=== PATIENT | female | born 1995 | race Two or more races ===

== ENCOUNTER 2024-05-06 20:54 | Emergency (ER) | payer MEDICAID, SELFPAY ==
[2024-05-06 20:55] VITALS: BMI 33.2
[2024-05-06 21:09] VITALS: BP 129/90; PULSE 86; RESP 19; TEMP 36.6; O2SAT 97
--- NOTE | 2024-05-06 21:12 | PD.EDRME ---
Rapid Medical Screening Exam RME Arrival date/time: 05/06/24 20:54 28-year-old female with past medical history of cholecystectomy presents emergency department complaining of chest pressure with shortness of breath that started 2 hours ago after a meal. Chief Complaint: Chest Pain Vital signs: Vital Signs Temperature 97.9 F 05/06/24 21:09 Pulse Rate 86 05/06/24 21:09 Respiratory Rate 19 05/06/24 21:09 Blood Pressure 129/90 H 05/06/24 21:09 Pulse Oximetry (%) 97 05/06/24 21:09 Oxygen Delivery Method Room Air 05/06/24 21:09 Vital signs reviewed by provider: Yes
--- NOTE | 2024-05-06 21:13 | XR_ITS ---
Examination: PA lateral chest 2 views Technique: Upright PA lateral chest 2 views Exam date and time: May 06, 2024 2112 hrs. Indications: Chest pain today Findings: Normal heart size Lungs are clear. The osseous structures are intact Impression: No active disease
[2024-05-06 21:39] LABS: Basophils % (Auto) 0 % (0-2.5); Eosinophils # (Auto) 0.1 Thou/mm3 (0.0-0.5); Eosinophils % (Auto) 1 % (0-10); Hematocrit 36.4 % (36.0-46.0); Immature Granulocytes % (Auto) 0 % (0-0); Immature Granulocytes Auto 0.04 Thou/mm3 (0.00-0.00); Lymphocytes # (Auto) 1.2 Thou/mm3 (1.0-4.8); Lymphocytes % (Auto) 13 % (10-50); Mean Corpuscular HGB Conc 35.7 g/dl (31.0-37.0); Mean Corpuscular Hemoglobin 32.1 pg (25.0-35.0); Mean Corpuscular Volume 90 fL (80-100); Monocytes # (Auto) 0.4 Thou/mm3 (0.0-0.8); Monocytes % (Auto) 5 % (0-12); Neutrophils # (Auto) 7.5 Thou/mm3 (1.8-7.7); Neutrophils % (Auto) 81 % (37-80); Nucleated Red Blood Cell % 0 /100 WBC (0); Platelet Count 342 Thou/mm3 (140-440); RDW Standard Deviation 41.2 fL (36.4-46.3); Red Blood Count 4.05 Miln/mm3 (4.00-5.20); White Blood Count 9.3 Thou/mm3 (3.6-11.0)
[2024-05-06 21:54] LABS: Partial Thromboplastin Time 24.3 Seconds (22.0-36.0)
[2024-05-06 22:09] LABS: B-Type Natriuretic Peptide < 20 pg/mL (0-100)
[2024-05-06 22:16] LABS: Alanine Aminotransferase 121 U/L (10-49); Albumin, Serum 5.1 gm/dL (3.5-5.0); Albumin/Globulin Ratio 1.8 (1.2-2.2); Alkaline Phosphatase 69 U/L (46-116); Anion Gap 8 (7-16); Aspartate Amino Transferase 71 U/L (0-34); BUN/Creatinine Ratio 9 Ratio (12-20); Bilirubin,Total 0.6 mg/dL (0.3-1.2); Blood Urea Nitrogen 8 mg/dL (9-23); Calcium 10.6 mg/dL (8.3-10.6); Calcium (Corrected) 10.6 mg/dL (8.5-10.1); Carbon Dioxide 27.4 mMol/L (20.0-31.0); Chloride 103 mMol/L (98-107); Creatinine (Component) 0.9 mg/dL (0.6-1.3); Estimated Creatinine Clearance 83.9 mL/min (>60); Globulin 2.8 gm/dL (2.3-3.5); Glucose 131 mg/dL (74-106); Magnesium 1.9 mg/dL (1.6-2.6); Osmolality,Calculated 275 (275-295); Potassium 3.4 mMol/L (3.4-5.1); Sodium 138 mMol/L (136-145); Total Protein 7.9 gm/dL (5.7-8.2); Troponin I < 0.002 ng/mL (0.0-0.045); eGFR > 60 See Note
[2024-05-06 22:35] LABS: HCG,Qualitative Serum Negative
[2024-05-06 23:21] LABS: Collection Type, Urine Clean Catch
[2024-05-06 23:28] LABS: Bilirubin,Urine Negative (Negative); Blood,Urine Negative (Negative); Clarity,Urine Clear (Clear/Hazy); Color,Urine Lt-Yellow (Lt Yel-Yel); Culture Indicated,Urine Not Indicated; Glucose, Urine Negative (Negative); Ketones,Urine Negative (Negative); Leukocyte Esterase,Urine Positive (Negative); Nitrite,Urine Negative (Negative); PH,Urine 6.5 (5.0-7.0); Protein,Urine Negative (Neg - Trace); RBC,Urine 1 /hpf (0-3); Specific Gravity,Urine 1.013 (1.001-1.035); Squamous Epithelial Cell,Urine 1 /hpf (0-5); Urobilinogen,Urine Negative mg/dL (0.0-1.0); WBC,Urine 1 /hpf (0-5)
[2024-05-06 23:51] LABS: Amphetamine/Methamp Scrn,U Negative (Negative); Barbiturate Screen,Urine Negative (Negative); Benzodiazepines Screen,Urine Negative (Negative); Benzoylecgonine Screen, Ur Negative (Negative); Fentanyl Screen,Urine Negative (Negative); Opiate Screen,Urine Negative (Negative); THC Screen,Urine Positive (Negative)
--- NOTE | 2024-05-07 00:29 | PC.NURSE ---
NA X 1.
--- NOTE | 2024-05-07 00:48 | PC.NURSE ---
PT CALLED BACK FROM [facility] NO ANSWER
[2024-05-07 00:55] LABS: LDH (Lactate Dehydrogenase) 173 U/L (120-246)
--- NOTE | 2024-05-07 01:18 | PC.NURSE ---
PT CALLED BACK FROM [facility] NO ANSWER
== END 2024-05-07 01:19 | disposition left against medical advice (07) ==
LOC: SERX 21:40
PROVIDERS: Emergency Provider Emergency Medicine; PCP Family Medicine
DX: R07.89 Other chest pain (principal); R06.02 Shortness of breath; I45.10 Unspecified right bundle-branch block; Z53.29 Procedure and treatment not carried out because of patient's decision for other reasons
CPT/HCPCS: 36415; 71046; 80053; 80307; 81001; 83615; 83735; 83880; 84484; 84703; 85025; 85610; 85730; 93005; 99281